=== PATIENT | female | born 1970 | race Caucasian/White ===

== ENCOUNTER → 2022-10-21 13:43 | Outpatient (CLI) | payer BC, SELFPAY ==
--- NOTE | ~2022-10-21 | MM_ITS ---
EXAMINATION: MM screening kenna BI w lorenzo HISTORY: Screening mammogram TECHNIQUE: Craniocaudal and mediolateral oblique 3-D tomosynthesis images were obtained and synthetic 2-D images were generated. CAD analysis was submitted and interpreted. COMPARISON: No prior mammogram is available for comparison at this institution. BREAST PARENCHYMAL COMPOSITION: The breasts are almost entirely fatty. FINDINGS: No suspicious mass, calcification, or architectural distortion are identified in either raúl ast to suggest malignancy. IMPRESSION: 1. No mammographic evidence of malignancy. 2. Recommend routine screening mammography in one year. BI-RADS Category 1: Negative Reviewed, dictated and finalized at location A.
== END ==
PROVIDERS: PCP Family Medicine; Visit Provider Family Medicine
DX: Z12.31 Encounter for screening mammogram for malignant neoplasm of breast (principal)
CPT/HCPCS: 77063; 77067

== ENCOUNTER 2024-01-19 12:35 | Outpatient (CLI) | payer BC, SELFPAY ==
--- NOTE | ~2024-01-19 | MM_ITS ---
EXAMINATION: MM screening kenna BI w lorenzo HISTORY: Screening TECHNIQUE: Craniocaudal and mediolateral oblique 3-D tomosynthesis images were obtained and synthetic 2-D images were generated. CAD analysis was submitted and interpreted. COMPARISON: 11/10/2022 BREAST PARENCHYMAL COMPOSITION: Not Dense: The breasts are almost entirely fatty. FINDINGS: There is no evidence of suspicious mass, calcification, or architectural distortion to sugg est malignancy in either breast. There has been no suspicious interval change. IMPRESSION: 1. No mammographic evidence of malignancy. 2. Recommend routine screening mammography in one year. BI-RADS Category 1: Negative Reviewed, dictated and finalized at location B.
== END 2024-01-19 12:36 | disposition home or self-care (01) ==
PROVIDERS: PCP Family Medicine; Visit Provider Family Medicine
DX: Z12.31 Encounter for screening mammogram for malignant neoplasm of breast (principal)
CPT/HCPCS: 77063; 77067

== ENCOUNTER 2024-01-24 12:40 | Emergency (ER) | payer BC, SELFPAY ==
--- NOTE | ~2024-01-24 | US_ITS ---
Limited ABDOMINAL ULTRASOUND Ordering provider: Amira Edwards PA-C History: . cholelithiasis, RUQ pain, N/V . Comparison: None. FINDINGS: LIVER: Normal size and echotexture. No focal hepatic lesions or perihepatic fluid collections are subha ntified. Portal vein flow is normal. GALLBLADDER: Large stone is seen measuring 2.5 cm. No evidence for sludge, gallbladder wall thickenin g or pericholecystic fluid collections. A negative sonographic Parker's sign was noted. BILIARY DUCTS: No evidence for intra or extrahepatic biliary dilation. Common bile duct measures 5 mm in diameter which is within normal limits. PANCREAS: Not well demonstrated. UPPER ABDOMINAL AORTA: Normal in caliber. Measures approximately 1.5 cm. IVC: Patent. FREE FLUID: None. IMPRESSION: 1. Cholelithiasis. No evidence of cholecystitis Reviewed, dictated and finalized at location A.
--- NOTE | ~2024-01-24 | CT_ITS ---
CLINICAL INDICATION: Upper abdominal pain COMPARISON: 07/12/2016. TECHNIQUE: An enhanced CT of the abdomen and pelvis was performed utilizing multislice spiral [facility] ue reconstructed at 5 mm slice thickness. Coronal and sagittal reconstructions were performed. This CT examination was performed utilizing dose reduction techniques. This CT examination was performed using one or more of the following dose reduction techniques: Automated exposure control, adjustment of the mA and/or kV according to patient's size, and the use of iterative reconstruction technique. FINDINGS/OBSERVATIONS: Visualized lower thorax: Dependent atelectasis is identified. The heart is minimally enlarged, without pericardial effusion. Liver: The liver is borderline enlarged measuring 17 cm in longitudinal dimension. Gallbladder and biliary system: A large lamellated stone is identified within the gallbladder, simila r in appearance to previous examination from 2017. No intrahepatic or extrahepatic biliary ductal dilatation is present. Pancreas: The pancreas enhances homogeneously, without ductal dilatation. Spleen: The spleen is not enlarged, and enhances homogeneously. Kidneys: Multiple rounded areas of decreased attenuation are identified within the bilateral kidneys, largely unchanged from 2017 examination, statistically representing cysts. A 6 mm calcification is identified within the lower pole of the left kidney, unchanged from 2017. No hydronephrosis or additional renal calculi. Adrenal glands: The bilateral adrenal glands are unremarkable. Gastrointestinal tract: Mural edema is identified within the descending colon with trace surrounding inflammatory change, a finding of uncertain clinical significance. The remainder of the colon is unremarkable. No small bowel dilatation is present. No diverticulum are noted. Trace fecal stasis within the rectum. Appendix:While the appendix is not definitively visualized, no significant pericecal inflammatory fadumo nge is present to suggest the presence of acute appendicitis. Vasculature: The abdominal aorta is nonaneurysmal. The IVC is patent. Lymph nodes: No pathologically enlarged or morphologically suspicious lymph nodes within the retroper itoneum or at the root of the mesentery. Pelvic structures:The uterus is either surgically absent or atrophic. The bladder is decompressed, limiting its evaluation. Body wall and musculoskeletal: Unremarkable IMPRESSION: Mucosal thickening within the ascending colon with trace surrounding inflammatory change, possibly an acute enteritis. Renal calculi. Cholelithiasis. Reviewed, dictated and finalized at location A. IMPRESSION: Mucosal thickening within the ascending colon with trace surrounding inflammato ry change, possibly an acute enteritis. Renal calculi. Cholelithiasis.
[2024-01-24 12:45] VITALS: BP 166/75; PULSE 90; RESP 20; O2SAT 95
[2024-01-24 13:05] LABS: Basophils Percent Auto 0.3 % (0.2-1.2); Hematocrit 43.7 % (37.0-47.0); Hemoglobin 14.9 g/dL (12.0-15.0); Immature Granulocyte Absolute 0.02 K/mm3 (0.00-0.031); Immature Granulocyte Percent A 0.3 % (0-0.5); Lymphocytes Absolute Auto 0.77 K/mm3 (0.9-3.2); Lymphocytes Percent Auto 11.4 % (18.3-44.2); Mean Corpuscular HGB Conc 34.1 g/dl (32-36); Mean Corpuscular Hemoglobin 31.2 pg (26-34); Mean Corpuscular Volume 91.4 fl (80-100); Mean Platelet Volume 11.4 fl (7.4-10.4); Monocytes Absolute Auto 0.1 K/mm3 (0.1-0.6); Monocytes Percent Auto 1.9 % (2.6-8.5); Neutrophils Absolute Auto 5.8 K/mm3 (1.3-6.7); Neutrophils Percent Auto 86.1 % (45.5-73.1); Platelet Count Result 312 k/mm3 (150-375); Red Blood Count 4.78 M/mm3 (4.2-5.4); White Blood Count 6.8 K/mm3 (4.5-10.0)
[2024-01-24 13:20] LABS: Alanine Aminotransferase 20 U/L (6-35); Albumin Level 4.6 g/dL (3.5-5.1); Alkaline Phosphatase 107 U/L (38-126); Anion Gap 9 mmol/L (4-12); Aspartate Amino Transferase 26 U/L (14-36); Bilirubin,Total 0.9 mg/dL (0.2-1.3); Blood Urea Nitrogen 7 mg/dL (7-17); Carbon Dioxide 23 mmol/L (22-30); Chloride 106 mmol/L (98-107); Estimated Glomerular Filt Rate > 60; Glucose 132 mg/dL (65-110); Lipase 95 U/L (23-300); Potassium 3.7 mmol/L (3.4-5.0); Sodium 138 mmol/L (137-145)
--- NOTE | 2024-01-24 13:29 | ECG_ITS ---
Test Date: 2024-01-24 13:58:06 Measurements Intervals [place] Rate: 65 P: 8 IL: 112 QRS: -24 QRSD: 89 T: -19 QT: 390 QTc: 407 Interpretive Statements SINUS RHYTHM WITH SHORT [place] INTERVAL BORDERLINE LEFT AXIS DEVIATION [QRS AXIS < -20] NONSPECIFIC T-WAVE ABNORMALITY ABNORMAL ECG No previous ECG available for comparison Electronically Signed On 01-24-2024 14:48:51 CDT by Candelario Carolina M.D.
[2024-01-24 13:41] LABS: Influenza A QL RT-PCR Negative (Negative); Influenza B QL RT-PCR Negative (Negative); RSV RNA, RT-PCR Negative (Negative); SARS-CoV-2 RNA PCR Negative (Negative)
--- NOTE | 2024-01-24 13:41 | ED.ABDPAIN ---
HPI - Abdominal Pain General Chief Complaint: Abdominal Pain Stated Complaint: abd pain Time Seen by Provider: 01/24/24 12:44 Source: patient Mode of arrival: ambulatory Limitations: no limitations History of Present Illness HPI narrative: Patient is a 54 y/o female who presents to the ED with multiple complaints. Patient reports she ate peruvian food last night around 5pm with her . She began having pain throughout her upper abd/RUQ last night. Pain persisted into this morning and patient began having nausea, vomiting, diarrhea. Notes her emesis consisted of bile like material. Denies rectal bleeding or melena. Also reports having cold sweats, chills, headache. Does have history of migraines. Has not been able to take anything for the pain d/t vomiting. Denies known fever. Denies chest pain, shortness of breath. Denies cough or cold sx's. Denies family members with similar symptoms. Related Data Allergies Allergy/AdvReac Type Severity Reaction Status Date / Time adhesive tape Allergy Mild BLISTERS Verified 10/02/19 09:42 codeine Allergy Mild rash, Verified 10/02/19 09:42 itching cranberry Allergy Mild red rash Verified 10/02/19 09:42 and swelling Review of Systems Review of Systems: All systems reviewed & are unremarkable except as noted in HPI. All systems reviewed & are unremarkable except as noted in HPI and below PMFSH Past Medical History Medical History delivery delivered (~1992) H/O (corrected) congenital malformations of integument, limbs, and musculoskeletal systems (~1975) [id number] [facility] Rickets (~1967) congenital rickets Surgical History Surgical History History of delivery (~1992) History of dilatation and curettage (~2009) History of hysterectomy (~2011) History of tonsillectomy (~2016) Hx of appendectomy (~2018) Family History Family History Father Cancer Grandparent , in his 90's Congestive cardiac failure Grandparent , in his 50's Heart disease Acute myocardial infarction, Onset Age: 50 Grandparent Heart disease Grandparent Acute myocardial infarction Grandparent Cancer female cancer Grandparent Heart disease Social History Social History Smoking status: Former smoker Smoking end date: 04/19/91 Alcohol intake: never Substance use: never Gender identity (if verbalized by the patient): Female Sexual Orientation (if Verbalized by the Patient): Straight or Heterosexual Exam Narrative: GENERAL: Well appearing, morbidly obese with BMI of 47.0, non-toxic, in no acute distress. HEAD: Normocephalic, atraumatic. RESPIRATORY: Airway patent, respirations nonlabored. Clear to auscultation bilaterally, no rales, rhonchi, wheezing. CARDIOVASCULAR: Regular rate and rhythm without murmurs, rubs, or gallops. ABDOMINAL: Soft, diffuse tenderness throughout upper abdomen, worst throughout right upper quadrant. Nondistended. Normoactive BS. MUSCULOSKELETAL: Moves all extremities. No gross deformities. SKIN: Warm, dry, normal color. NEURO: A&O X3. Speech clear. Cranial nerves II-XII grossly intact. Steady gait. No ataxic movements. PSYCHIATRIC: Appropriate mood and affect. Normal interaction. Course Vital Signs Vital signs: Vital Signs Pulse Rate 90 01/24/24 12:45 Respiratory Rate 20 01/24/24 12:45 Blood Pressure 166/75 H 01/24/24 12:45 Pulse Oximetry 95 01/24/24 12:45 Oxygen Delivery Room Air 01/24/24 12:45 Temperature 98.5 F 01/24/24 13:49 Pulse Rate 72 01/24/24 16:59 Respiratory Rate 16 01/24/24 16:59 Blood Pressure 143/72 H 01/24/24 16:59 Pulse Oximetry 97 01/24/24 16:59 O
[2024-01-24] MEDS: SODIUM CHLORIDE 0.9% IV 1,000 ML 999 ML IV CONT (13:46)
[2024-01-24] MEDS: DICYCLOMINE HCL 10 MG CAPSULE 20 MG PO (13:46)
[2024-01-24] MEDS: ONDANSETRON INJ 4 MG/2 ML VIAL IV PUSH (13:46)
[2024-01-24] MEDS: ACETAMINOPHEN 500 MG TABLET 1000 MG PO (13:46)
[2024-01-24 13:49] VITALS: BP 153/79; PULSE 72; RESP 22; TEMP 36.9; O2SAT 98
[2024-01-24 14:06] LABS: Add Urine Microscopic? YES; Appearance Urine Clear (Clear); Bacteria Urine None Seen /hpf; Bilirubin Urine Negative (Negative); Blood Urine Negative (Negative); Color Urine Yellow (Yellow); Glucose Urine UA Negative (Negative); Ketones Urine Trace mg/dL (Negative); Leukocyte Esterase Ur 2+ LEU/UL (Negative); Nitrate Urine Negative (Negative); Non Pathogenic Casts 0-2; Protein Urine Trace mg/dL (Negative); RBC Urine 0-2 /hpf (0-2); Specific Grav Ur 1.017 (1.001-1.035); Squamous Epithelial Cell Urine Occasional /hpf (Few); Urobilinogen Urine 0.2 mg/dL (<2.0); pH Urine 7.5 (5.0-9.0)
--- NOTE | 2024-01-24 14:10 | PC.NURSE ---
Lab called to add ordered troponin and magnesium to green top sent down.
[2024-01-24 14:20] VITALS: BP 152/107; PULSE 70; RESP 22; O2SAT 97
[2024-01-24 15:04] LABS: Troponin I < 0.012 ng/mL (0.000-0.034)
[2024-01-24 16:59] VITALS: BP 143/72; PULSE 72; RESP 16; O2SAT 97
== END 2024-01-24 17:02 | disposition home or self-care (01) ==
PROVIDERS: Emergency Provider Physician Assistant; PCP Family Medicine
DX: K52.9 Noninfective gastroenteritis and colitis, unspecified (principal); K80.20 Calculus of gallbladder without cholecystitis without obstruction; Z20.822 Contact with and (suspected) exposure to COVID-19; Z90.710 Acquired absence of both cervix and uterus; Z87.891 Personal history of nicotine dependence
CPT/HCPCS: 36415; 74177; 76705; 80053; 81001; 83690; 83735; 84484; 85025; 87086; 87637; 93005; 96361; 96374; 99284; A9270; J2405; J7030; Q9967

== ENCOUNTER 2024-02-10 09:11 | Outpatient (CLI) | payer BC, SELFPAY ==
[2024-02-10 10:00] LABS: Amylase 74 U/L (30-110)
== END 2024-02-10 09:12 | disposition home or self-care (01) ==
LOC: ANHLAB 09:14
PROVIDERS: PCP Family Medicine; Visit Provider Surgery
DX: K80.10 Calculus of gallbladder with chronic cholecystitis without obstruction (principal); Z01.818 Encounter for other preprocedural examination
CPT/HCPCS: 36415; 82150; 86850; 86900; 86901

== ENCOUNTER 2024-02-17 01:33 | Day surgery (SDC) | payer BC, SELFPAY ==
[2024-02-10 08:26] VITALS: BMI 46.4
--- NOTE | 2024-02-10 08:35 | PC.NURSE ---
Report to the Outpatient Waiting Room, entrance under the green pavilion located off [facility], at time _1000_ on date _[id number]_. Planned Procedure Time: _1200_.? Time changes happen often and if your time is changed the preop area will call you the afternoon before. - You and your visitor will be asked to self-screen and do not enter if you have any COVID symptoms. Please call surgeon if you need to reschedule. - A mask is optional within the hospital at this time. Patients may have clear liquids (water, carbonated beverages, clear teas, apple juice) until 3 hours prior to surgery with a maximum of 20 ounces. - No food from midnight until time of surgery and no smoking Take only the following medications with a SIP of water on the morning of surgery: ___Zofran if needed.___ DO NOT STOP ANY OF YOUR OTHER PRESCRIPTION MEDICATIONS PRIOR TO SURGERY EXCEPT THE FOLLOWING Medications to discontinue per physician ___None___ Date to take last dose___ Please no make-up, nail cape verdean, hairspray, perfume, deodorant, or body powder the day of surgery.? No jewelry (including any body piercings) or valuables the day of surgery, leave them at home.? Please take a shower or bath the night before, or the morning of, surgery with an antibacterial soap.? Wear comfortable, loose fitting clothing.? - Jewelry must be removed prior to entering the operating room.? Rings and piercings that are not removed may be cut off. - The hospital will not accept responsibility for valuables.? - Please leave all valuables, including medications, at home the day of surgery. If you are going home after surgery, a licensed bottom hoop driver must drive you home.? - NO public transportation without another adult if you receive anesthesia. - We recommend that an adult stay with you for 24 hours following discharge. - We also recommend that you do not drive, make important decision, drink alcoholic beverages, or take any drugs that were not prescribed by your health care provider for at least 24 hours after your discharge time. Follow any additional instructions given to you from your surgeon. Telephone instructions given to __Rhina___and asked if any additional questions and then verbalized understanding. Patient advised to call surgeon office or pre surgery nurse liaison [phone] if any additional questions.
[2024-02-17] VITALS (8 sets, daily range): BP systolic 118–150; BP diastolic 62–108; PULSE 71–88; RESP 14–18; TEMP 36.3–36.7; O2SAT 94–100
[2024-02-17] MEDS: LACTATED RINGERS 1,000 ML 30 ML IV CONT ×2 (10:30→14:05)
--- NOTE | 2024-02-17 11:16 | WPDHPUPDATE1 ---
History and Physical Update Update Date/Time: 02/17/24 11:16 History and Physical has been reviewed, including an updated exam of the patient. There are NO changes in the patient's condition. Risks, benefits, and alternatives have been discussed and questions answered. Patient agrees to proceed with procedure.
[2024-02-17] MEDS: KETOROLAC 15 MG/ML VIAL (*BKC) IV PUSH (11:45)
[2024-02-17] MEDS: INDOCYANINE GREEN 25 MG VIAL WITH DILUENT 3.75 MG IV PUSH (11:45)
[2024-02-17] MEDS: ACETAMINOPHEN 500 MG TABLET 1000 MG PO (11:45)
--- NOTE | 2024-02-17 11:55 | WPDANESEPPF ---
Anes - Initial Pre Proc Eval Procedure: Operation Date: 02/17/24 12:00 Proposed Procedures p Robotic Assisted Cholecystectomy - Marta Medley MD Date/Time: 02/17/24 11:55 Surgeon: Marta Medley MD Pre Op Diagnosis: Chr Calculous Cholecystitis Patient Data Age: 54 Gender: F Height: 1.42 m Weight: 94 kg Allergies Allergy/AdvReac Type Severity Reaction Status Date / Time adhesive tape Allergy Mild BLISTERS Verified 02/17/24 11:51 codeine Allergy Mild rash, Verified 02/17/24 11:51 itching cranberry Allergy Mild red rash Verified 02/17/24 11:51 and swelling Home Medications Medication Instructions Recorded Confirmed Type ondansetron 4 mg disintegrating 4 mg PO Q8H PRN nausea and 01/24/24 02/17/24 Rx tablet vomiting #15 tabs Patient hx anesthesia problems: none Family hx anesthesia problems: none Results Review: All pre-operative results and documents have been reviewed as part of the pre-operative evaluation. [facility] Past Medical History Medical History delivery delivered (~1992) H/O (corrected) congenital malformations of integument, limbs, and musculoskeletal systems (~1975) [id number] [facility] Rickets (~1967) congenital rickets Surgical History Surgical History History of delivery (~1992) History of dilatation and curettage (~2009) History of hysterectomy (~2011) History of tonsillectomy (~2016) Hx of appendectomy (~2017) Family History Family History Father Cancer Grandparent , in his 90's Congestive cardiac failure Grandparent , in his 50's Heart disease Acute myocardial infarction, Onset Age: 50 Grandparent Heart disease Grandparent Acute myocardial infarction Grandparent Cancer female cancer Grandparent Heart disease Social History Social History (Updated 02/02/24 @ 09:31 by Malika Griggs) Smoking status: Never smoker Smoking end date: 04/19/91 Alcohol intake: never Substance use: never Current Housing: Decline to Answer Concerned About Future Housing: Decline to Answer Difficulty Paying Gas/Electric Bills: Decline to Answer Difficulty Paying for Meds: Decline to Answer Currently Unemployed: Decline to Answer Education: Decline to Answer Difficulty w/ Childcare or Family Care: Decline to Answer Living arrangements: with family Gender identity (if verbalized by the patient): Female Sexual Orientation (if Verbalized by the Patient): Straight or Heterosexual Spiritual care concerns: No Anes - Eval Final PreProcedure Day of Procedure 02/17/24 11:55 Patient weight: morbidly obese Heart: regular rate and rhythm Lungs: clear to auscultation Airway: Mallampati scale class III Neurological: alert and oriented Last oral intake: >/= 8 hours ASA classification: III Emergent: no Anesthetic plan: proceed Anesthesia type and monitoring: general (have glidescope in he room) ETT and standard monitoring Results Review: All pre-operative results and documents have been reviewed as part of the pre-operative evaluation. Informed Consent: The patient's anesthetic plan and its attendant risks and benefits were discussed with the patient/family/POA. Questions were solicited and answers provided to the satisfaction of the patient/family/POA.
[2024-02-17] MEDS: ceFAZolin 2 GM/D5W 50 ML 2 GM/50 ML BAG IVPB (12:04)
[2024-02-17] MEDS: BUPIVACAINE/EPINEPHRINE 0.5% 50 ML VIAL 30 ML INFILTRATE (12:36)
--- NOTE | 2024-02-17 13:58 | P.OP_ITS ---
Procedure Note - Detailed Date of Procedure 02/17/24 Pre-op Diagnosis Chronic Calculous Cholecystitis Post-op Diagnosis Same Procedure Performed Robotic assisted cholecystectomy Surgeon Marta Medley MD Anesthesia General Indications 54-year-old female with chronic cholecystitis, cholelithiasis. Findings Chronic cholecystitis with large impacted gallstone at the neck of the gallbladder, large amount of omental adhesions to the gallbladder Description of Procedure The patient was taken to the operating room and placed in the supine position. After adequate induction of general anesthesia, the patient was prepped and draped in the normal sterile fashion. A time-out was then done to verify the patient's identity, as well as the procedure being performed. I began by making a 8 mm incision in the periumbilical region. A Veress needle was then placed in the peritoneal cavity and CO2 gas was insufflated. After adequate pneumoperitoneum was achieved, the Veress needle was removed and a 8 mm Optiview trocar was placed under direct visualization. Once into the abdominal cavity, the introducer was removed and the laparoscope was placed through this trocar site. Under direct visualization, I placed a further 8 mm port in the left mid abdomen and 2 additional 8 mm ports in the right mid abdomen. The robot was then docked to these ports sites. I then went to the console. There was a adhesion in the right upper quadrant near the midline that was taken down sharply with the Bovie cautery. The gallbladder was then identified and noted to be moderately inflamed and distended. I was able to place a grasper at the dome of the gallbladder and this was retracted up and over the liver. A 2nd retractor was used to grasp the infundibulum and retracted laterally. This allowed visualization and dissection of the triangle of Calot. There were a lot omental adhesions to the gallbladder and these were taken down with the cautery. I then began dissection around the triangle Calot. There was noted to be a large impacted stone near the neck of the gallbladder. I first identified the cystic duct, I was able to visualize the entirety of the duct from its proximal insertion into the gallbladder to its distal junction with the common hepatic/common bile duct junction. I then used the firefly visualization at this point to confirm the anatomy. The proximal cystic duct was then further s keletonized, clipped, and transected. Next I visualized the cystic artery. Again the structure was skeletonized, clipped, and transected. I then again used firefly to confirm anatomy and no aberrant anatomy was noted. I then used the Bovie cautery to take down the peritoneal attachments of the gallbladder off the liver bed. This was quite difficult as the patient had a very intrahepatic gallbladder. Once the gallbladder specimen was completely detached, an Endo pouch was placed through the left 8 mm port site and the gallbladder specimen was placed in the endo-pouch and subsequently removed. Of note, I made a cholecystostomy and decompressed the gallbladder to facilitate removal. Also the port had to be enlarged to allow removal. I then re-examined the right upper quadrant. There was no bleeding in the liver bed, however given the amount of inflammation and intrahepatic nature of the gallbladder I did place Masoud hemostatic powder in the liver bed. Hemostasis was noted in the liver bed and the clips were noted to be in good position on both the duct and the artery. No other pathology was seen in the right upper quadrant. All instruments were then removed and the robot was undocked. The abdomen was then desufflated and all ports were removed. I did close the extraction site in the left abdomen at the fascial level with an 0 Vicryl U-stitch. All port sites were then closed with 4-0 Monocryl subcuticular suture. Dermabond was placed on each was wound. The patient tolerated the procedure well and was extubated in the operating room postop. The patient will now be transferred to the recovery room in stable condition. Estimated Blood Loss 20 Drains No Packing No Pathology Yes Complications No immediate complications Condition Stable Disposition PACU [facility] Billing Surgery - Charge Forward: Surgery Billing
[2024-02-17] MEDS: fentaNYL CITRATE INJ (*CRX) 100 MCG/2 ML VIAL 25 MCG IV PUSH ×4 (14:15→14:21)
[2024-02-17] MEDS: traMADol HCL (*CRX) 50 MG TABLET PO (15:33)
== END 2024-02-17 16:34 | disposition home or self-care (01) ==
PROVIDERS: PCP Family Medicine; Visit Provider Surgery
PROC: 0FT44ZZ Resection of Gallbladder, Percutaneous Endoscopic Approach (ICD-10-PCS; CPT 47562; principal; 2024-02-17 12:00)
DX: K80.10 Calculus of gallbladder with chronic cholecystitis without obstruction (principal); K66.0 Peritoneal adhesions (postprocedural) (postinfection); E66.01 Morbid (severe) obesity due to excess calories; Z68.42 Body mass index [BMI] 45.0-49.9, adult; Z98.890 Other specified postprocedural states; Z87.891 Personal history of nicotine dependence; Z80.9 Family history of malignant neoplasm, unspecified; Z82.49 Family history of ischemic heart disease and other diseases of the circulatory system
CPT/HCPCS: 47562; S2900; 88304; A9270; J0690; J1100; J1885; J2003; J2250; J2405; J2704; J3010; J7030; J7120